=== PATIENT | male | born 1985 | race Caucasian/White ===

== ENCOUNTER 2019-10-02 21:07 | Outpatient (REF) | payer MEDICAID, SELFPAY ==
[2019-10-04 14:28] LABS: Chlamydia Result Negative (Negative); GC Result Negative (Negative)
[2019-10-05 22:00] LABS: Source URINE; T.vaginalis, Misc, RNA Negative (Negative)
== END 2019-10-02 21:27 ==
LOC: LBN 21:07
PROVIDERS: PCP Internal Medicine; Visit Provider Internal Medicine
DX: R30.0 Dysuria (principal); Z11.3 Encounter for screening for infections with a predominantly sexual mode of transmission
CPT/HCPCS: 87491; 87591; 87661

== ENCOUNTER 2021-06-04 20:50 | Outpatient (REF) | payer MEDICAID, SELFPAY ==
[2021-06-04 15:02] LABS: Bilirubin Negative (Negative); Blood Negative (Negative); Clarity Cloudy (Clear); Glucose Negative (Negative); Ketones Negative (Negative); Leukocyte Esterase Negative (Negative); Nitrite Negative (Negative); Urobilinogen 0.2 EU/dL (Up TO 0.2)
[2021-06-04 21:21] LABS: Abs Immature Grans 0.02 10^3/uL (0.0-0.06); Absolute Basophil Count 0.04 10^3/uL (0.0-0.2); Absolute Eosinophil Count 0.11 10^3/uL (0.0-0.7); Absolute Lymphocyte Count 1.96 10^3/uL (1.2-3.4); Absolute Monocyte Count 0.59 10^3/uL (0.1-0.8); Absolute Neutrophil Count 3.72 10^3/uL (1.2-6.7); Basophils % 0.6; Eosinophils % 1.7; HCT 41.9 % (40.0-50.0); HGB 13.9 g/dL (13.5-17.5); Immature Grans % 0.3; Lymphocytes % 30.4; MCH 30.5 pg (27.0-33.0); MCHC 33.2 % (32.0-36.0); MCV 92.1 fL (80-95); MPV 10.7 fL (8.0-11.0); Monocytes % 9.2; Neutrophils % 57.8; Nucleated RBC 0 %; Platelet Count 233 10^3/uL (130-400); RBC 4.55 10^6/uL (4.36-5.78); RDW 12.2 % (11.8-14.1); RDW-SD 41.5 fL; WBC 6.44 10^3/uL (4.4-10.8)
[2021-06-04 21:41] LABS: ALT 18 U/L (16-63); AST 13 U/L (15-37); Albumin 4.3 g/dL (3.4-5.0); Alkaline Phosphatase 115 U/L (46-116); BUN 13 mg/dL (7-18); Bilirubin, Total 0.4 mg/dL (0.2-1.0); Calcium 8.9 mg/dL (8.5-10.1); Chloride 105 mmol/L (98-107); Glucose 93 mg/dL (74-106); Potassium 4.2 mmol/L (3.5-5.1); Sodium 143 mmol/L (136-145); Total Protein 7.4 g/dL (6.4-8.2)
== END 2021-06-04 20:51 | disposition home or self-care (01) ==
LOC: LBN 20:50
PROVIDERS: PCP Nurse Practitioner; Visit Provider Physician Assistant
DX: R10.31 Right lower quadrant pain (principal)
CPT/HCPCS: 80053; 81003; 85025

== ENCOUNTER 2022-11-15 01:57 | Outpatient (CLI) | payer MEDICAID, SELFPAY ==
--- NOTE | 2022-11-15 08:00 | DI.RAD_ITS ---
Exam(s) XR THORACIC SPINE COMPLETE EXAM: XR THORACIC SPINE COMPLETE CLINICAL HISTORY: increasing upper back pain,m54.9. TECHNIQUE: 2D digital imaging was performed. COMPARISON: No exams were available for comparison FINDINGS: Two views: No evidence fracture nor listhesis nor disc space narrowing. No abnormal widening of the paraspinal lines. No thoracic scoliosis. Bone density normal. No osseous lesions IMPRESSION: No significant osseous findings in thoracic spinal column. DATA REPOSITORY: RADIATION DOSE DELIVERED:
--- NOTE | 2022-11-15 08:00 | DI.RAD_ITS ---
Exam(s) XR CERVICAL SPINE COMP 4-5V EXAM: XR CERVICAL SPINE COMP 4-5V CLINICAL HISTORY: Increasing pain. TECHNIQUE: 2D digital imaging was performed. COMPARISON: No exams were available for comparison FINDINGS: Five views: No evidence of fracture or listhesis. No offset spinal laminar line. Moderate disc space narrowing at C6-7 noted. C5-6 exhibits normal height. On the oblique views there are small Luschka joint oste ophytes at C6-7 on right side. No cervical ribs. IMPRESSION: Degenerative disc disease C6-7 as described above. DATA REPOSITORY: RADIATION DOSE DELIVERED:
== END 2022-11-15 02:17 ==
LOC: DI 01:57
PROVIDERS: PCP Nurse Practitioner Family; Visit Provider Nurse Practitioner Family
DX: M54.2 Cervicalgia (principal); M54.6 Pain in thoracic spine; M50.323 Other cervical disc degeneration at C6-C7 level
CPT/HCPCS: 72050; 72072

== ENCOUNTER 2022-11-21 03:19 | Outpatient (CLI) | payer MEDICAID, SELFPAY ==
[2022-11-21 16:45] LABS: ALT 16 U/L (16-63); AST 11 U/L (15-37); Alkaline Phosphatase 109 U/L (46-116); Anion Gap 6.4 mmol/L (3-11); BUN 14 mg/dL (7-18); Bilirubin, Total 0.3 mg/dL (0.2-1.0); CO2 30.6 mmol/L (21.0-32.0); Calcium 9.2 mg/dL (8.5-10.1); Chloride 105 mmol/L (98-107); Cholesterol 163 mg/dL (<200); Glucose 117 mg/dL (74-106); HDL Cholesterol 83 mg/dL (40-60); Potassium 3.5 mmol/L (3.5-5.1); Sodium 142 mmol/L (136-145); TSH (W/Ref FT4) 0.87 uIU/mL (0.36-3.74); Total Protein 7.4 g/dL (6.4-8.2)
[2022-11-21 16:47] LABS: Triglyceride < 25 mg/dL (<150)
[2022-11-21 18:12] LABS: LDL CHOLESTEROL 68 mg/dL (<100)
== END 2022-11-21 03:20 | disposition home or self-care (01) ==
LOC: LBO 03:19
PROVIDERS: PCP Nurse Practitioner Family; Visit Provider Nurse Practitioner Family
DX: Z13.220 Encounter for screening for lipoid disorders (principal); Z13.29 Encounter for screening for other suspected endocrine disorder; Z00.00 Encounter for general adult medical examination without abnormal findings; R79.89 Other specified abnormal findings of blood chemistry
CPT/HCPCS: 36415; 80053; 80061; 83721; 84443

== ENCOUNTER 2025-02-22 15:23 | Emergency (ER) | payer SELFPAY ==
[2025-02-22] VITALS (26 sets, daily range): BP systolic 111–142; BP diastolic 73–84; PULSE 55–79; RESP 12–18; TEMP 36.3; O2SAT 95–100
--- NOTE | 2025-02-22 15:30 | RT.EKG_ITS ---
APPROVED REPORT Exam: Resting ECG Reason for Exam: ?syncope Patient Location: E HR:70 bpm ECG Measurements Heart Rate 70 AXIS AR 130 P 44 QRSd 98 QRS 82 QT 381 T 35 QTc 412 Conclusion Sinus rhythm...normal P axis, V-rate 60- 99
--- NOTE | 2025-02-22 15:30 | DI.CT_ITS ---
Exam(s) CT HEAD WO EXAM: CT HEAD WO CLINICAL HISTORY: fall, headache. TECHNIQUE: Imaging Protocol: Axial computed tomography images with coronal and sagittal reformatted images were created and reviewed COMPARISON: No exams were available for comparison FINDINGS: There are no skull fractures. There is no fluid in the visualized paranasal sinuses. There is no evidence of intracranial hemorrhage, mass effect, or shift of midline structures. There are no extra-axial fluid collections. The ventricles are not enlarged or shifted and there is no blood within the ventricular system nor within the basal cisterns. IMPRESSION: No acute intracranial findings on this noninfused CT scan of the brain. Report called by myself to ER physician 02/22/2025 at 4:12 p.m. RADIATION DOSE DELIVERED: 907.25mGy.cm Total DLP DATA REPOSITORY: All CT scans at this facility are submitted to the National Radiology Data Registry (NRDR) Dose Index Registry (DIR) with the [employer] (A[employer]). RADIATION OPTIMIZATION: All CT scans at this facility use at least one of these dose optimization techniques: automated exposure control; mA and/or kV adjustment per patient size (includes targeted exams where dose is matched to clinical indication); or iterative reconstruction.
--- NOTE | 2025-02-22 15:50 | ED.GENADUL_ITS ---
Discharge Plan Disposition Patient Disposition: Home Condition: Stable Discharge Details Clinical Impression: Fatigue, Altered mental status Primary Care Provider: Rosa Howard ED Provider: Darshan Javier Home Meds and New Rx's Prescriptions: No Action No Known Home Meds Discharge Instructions Additional Instructions: Your blood work and CAT scan did not show any concerning findings at this time. It is unclear if he actually had a seizure. Follow-up with your primary care provider within 1 to 2 weeks especially if your symptoms continue. If you feel significantly more ill or have new symptoms such as high fevers or difficulty breathing return to the emergency department for reevaluation. HPI General Mode of arrival: ambulatory . Date/Time Provider Initiated Documentation: 02/22/25 15:26 . Limitations to Documentation: no limitations . Information obtained by: patient . History of Present Illness 39 year old M presents to the emergency department with the chief complaint of fatigue, headache, ?seizure, described as moderate, Patient started experiencing this day(s) (5) and it has been constant. No relieving factors improve sympto m(s), No exacerbating factors reported . Patient notes no other symptoms.; denies chest pain, fever/chills and shortness of breath. Related Data Home Medications ?Medication ?Instructions ?Recorded ?Confirmed Unknown [No Known Home Meds] 02/22/25 0 02/22/25 Allergies Allergy/AdvReac Type Severity Reaction Status Date / Time No Known Allergies Allergy Verified 02/22/25 15:30 General Stated Complaint: GenMedical CRUZ: 3 Review of Systems All systems reviewed & are unremarkable except as noted in HPI and below Constitutional Constitutional: Denies chills, Reports fatigue, Denies fever(s) and Reports headache(s) Eyes Eyes: Denies loss of vision ENT Ears, Nose, Mouth, and Throat: Reports headache(s) Cardiovascular Cardiovascular: Denies chest pain and Denies dyspnea Respiratory Respiratory: Denies cough and Denies dyspnea Gastrointestinal Gastrointestinal: Denies abdominal pain, Denies nausea and Denies vomiting Neurologic Neurologic: Reports headache(s) and Denies loss of vision Endocrine Endocrine: Reports fatigue Exam Const General: no acute distress Orientation: alert [facility] Head: normal to inspection Ears: external ears normal General nose exam: external nose normal Mouth: moist mucous membranes Eyes General: appearance normal, both eyes and all related structures Neck Neck: normal visual inspection Resp Effort & Inspection: normal respiratory effort and able to speak in complete sentences Cardio Rate: regular rate GI Palpation: soft and nontender Neuro General: patient alert and patient oriented x3 Cranial Nerves: CN's II-XI intact bilaterally Gait: normal gait Extrem General: normal to inspection Psych Mental Status: mental status grossly normal Course Vital Signs Vital signs: Vital Signs Temperature 36.3 C L 02/22/25 15:27 Pulse 68 02/22/25 15:27 Respiratory Rate 12 02/22/25 15:27 Blood Pressure 111/73 02/22/25 15:27 Pulse Oximetry 95 02/22/25 15:27 Temperature 36.3 C L 02/22/25 15:27 Temperature Source Oral 02/22/25 15:27 Pulse 68 02/22/25 15:27 Respiratory Rate 12 02/22/25 15:27 Blood Pressure 111/73 02/22/25 15:27 Blood Pressure Position Sitting 02/22/25 15:27 Pulse Oximetry 95 02/22/25 15:27 Oxygen Delivery Method Room Air 02/22/25 15:27 Oxygen Flow Rate 0 02/22/25 15:27 Medical Decision Making 3-year-old male with a history of mood disorder, anxiety and depression, who comes in with 5 days of intermittent frontal headaches and fatigue after he believes he may have had a seizure. The mother states that she was called to his house by his sons after he was found on the ground and had twitching of his arms and legs. Is unclear why he comes to hospital today. He says since then he has been having headaches and fatigue and difficulties with memory so came in for evaluation. He denies any changes in speech, no changes in vision, no fevers or chills, no chest pain, no abdominal pain. He is moving his lower extremities well. Show nerves II through XII are intact. NIH of 0. No signs of trauma to the head. No midline C-spine tenderness given the question of a seizure I will check a CMP, CBC and also check troponins and EKG head CT for the headache since that started after a potential fall. Labs unremarkable other than mild ptosis 14 but he has no no fevers, no neck stiffness, no cough, no other symptoms to suggest infectious etiology. CT head negative. Given reassuring workup I feel he can follow-up with his PCP if symptoms continue. Unclear if he actually had a seizure. Return precautions given Differential Diagnosis Differential Diagnosis: Electrolyte abnormality, seizure, TBI Lab Data Lab results reviewed: Yes I reviewed the patient's lab results. ECG Data Attestation: I personally reviewed and interpreted this ECG (s) as follows: Prior ECG tracings: not available for review Interpretation: sinus rate of 70 no stemi PFSH All Active Problems (Updated 02/22/25 @ 18:12 by Darshan Javier MD) Altered mental status (Acute) Fatigue (Acute) History of traumatic head injury (Acute) Has never had imaging, 3 pas head injuries, last was 2009. Anxiety and depression (Chronic) Mood disorder (Acute) Testicular pain, unspecified (Acute) status post vasectomy Back pain with radiation (Acute) Upper back, neck, radiates down left arm Family History Mother No problems noted. Father No problems noted. Sister Alcohol abuse Son No problems noted. Son No problems noted. 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
[2025-02-22 16:21] LABS: Abs Immature Grans 0.04 10^3/uL (0.0-0.06); Basophils % 0.8 %; Eosinophils % 1.5 %; HCT 37.4 % (40.0-50.0); HGB 12.6 g/dL (13.5-17.5); Immature Grans % 0.3 %; Lymphocytes % 17.1 %; MCH 32.2 pg (27.0-33.0); MCHC 33.7 % (32.0-36.0); MCV 96 fL (80-95); MPV 9.7 fL (8.0-11.0); Monocytes % 6.5 %; Neutrophils % 73.8 %; Platelet Count 196 10^3/uL (130-400); RBC 3.91 10^6/uL (4.36-5.78); RDW 13.1 % (11.8-14.1); RDW-SD 45.6 fL; WBC 14.41 10^3/uL (4.4-10.8)
[2025-02-22 16:36] LABS: Absolute Basophil Count 0.12 10^3/uL (0.0-0.2); Absolute Eosinophil Count 0.22 10^3/uL (0.0-0.7); Absolute Lymphocyte Count 2.46 10^3/uL (1.2-3.4); Absolute Monocyte Count 0.94 10^3/uL (0.1-0.8); Absolute Neutrophil Count 10.63 10^3/uL (1.2-6.7)
[2025-02-22 16:39] LABS: ALT 16 U/L (16-63); AST 14 U/L (15-37); Albumin 3.7 g/dL (3.4-5.0); Alkaline Phosphatase 122 U/L (46-116); Anion Gap 7.9 mmol/L (3-11); BUN 11 mg/dL (7-18); Bilirubin, Total 0.4 mg/dL (0.2-1.0); CO2 31.1 mmol/L (21.0-32.0); Calcium 8.8 mg/dL (8.5-10.1); Chloride 100 mmol/L (98-107); Estimated GFR 97.58 (mL/min/1.73m2); Glucose 109 mg/dL (74-106); Potassium 3.7 mmol/L (3.5-5.1); Sodium 139 mmol/L (136-145); TSH (W/Ref FT4) 1.09 uIU/mL (0.36-3.74); Total Protein 7.2 g/dL (6.4-8.2); Troponin I 4 ng/L (<or=76)
[2025-02-22 17:23] LABS: Troponin I 4 ng/L (<or=76)
[2025-02-22 17:47] LABS: Bilirubin Negative (Negative); Blood Negative (Negative); Clarity Clear (Clear); Glucose Negative (Negative); Ketones Negative (Negative); Leukocyte Esterase Negative (Negative); Nitrite Negative (Negative); Urobilinogen 0.2 mg/dL (Up to 0.2); pH 7.5 (5-8)
[2025-02-22 17:51] LABS: *AMPHETAMINES SCREEN URINE Negative (Negative); *BARBITURATES SCREEN URINE Negative (Negative); *BENZODIAZEPINES SCREEN URINE Negative (Negative); Cannabinoids THC Positive (Negative); Cocaine Screen,Urine Negative (Negative); METHADONE URINE SCREEN Negative (Negative); OPIATES URINE SCREEN Negative (Negative); Tricyclic Antidepressants Negative (Negative)
== END 2025-02-22 18:17 | disposition home or self-care (01) ==
PROVIDERS: Emergency Provider Emergency Medicine; PCP Nurse Practitioner Family
DX: R53.83 Other fatigue (principal); R41.82 Altered mental status, unspecified; Z87.828 Personal history of other (healed) physical injury and trauma
CPT/HCPCS: 99284 ×2; 80053; 80307; 93005; 70450; 81003; 83735; 84443; 84484; 85025; 93010

== ENCOUNTER 2025-06-19 10:59 | Emergency (ER) | payer MEDICAID, SELFPAY ==
[2025-06-19] VITALS (19 sets, daily range): BP systolic 120–151; BP diastolic 50–89; PULSE 65–83; RESP 12–18; TEMP 36.7; O2SAT 96–99
--- NOTE | 2025-06-19 11:00 | RT.EKG_ITS ---
APPROVED REPORT Exam: Resting ECG Reason for Exam: Chest Pain Patient Location: E HR:72 bpm ECG Measurements Heart Rate 72 AXIS TX 129 P 26 QRSd 86 QRS 73 QT 374 T 54 QTc 408 Conclusion Sinus rhythm, rate 72 No interval abnormalities No STEMI Borderline ST elevation V2, V3, noted on prior. No reciprocal changes
--- NOTE | 2025-06-19 11:30 | DI.RAD_ITS ---
Exam(s) XR CHEST 2V PA LATERAL EXAM: XR CHEST 2V PA LATERAL CLINICAL HISTORY: Chest pain TECHNIQUE: 2D digital imaging was performed of the chest. Two images were obtained. PA and lateral views were obtained. COMPARISON: CR CHEST 2 VIEWS PA,LAT from 11/01/2016 FINDINGS: MEDIASTINUM: Normal. HEART: Normal. PULMONARY VASCULATURE: Normal. LUNGS: Clear. PLEURAL SPACE: No pleural effusion or pneumothorax. BONE:Within normal limits for the patient's age. OTHER FINDINGS:Normal. IMPRESSION: No acute pulmonary findings. DATA REPOSITORY: RADIATION DOSE DELIVERED:
--- NOTE | 2025-06-19 11:33 | W.ED.GENAD ---
Discharge Plan Disposition Patient Disposition: Home Condition: Stable Discharge Details Clinical Impression: Chest pain of unknown etiology, Elevated transaminase level Primary Care Provider: Rosa Howard ED Provider: Ghislaine Kaiser Home Meds and New Rx's Prescriptions: No Action No Known Home Meds Discharge Instructions Instructions: Chest Pain, Adult ED Additional Instructions: You were seen in the emergency department today for evaluation of chest pain for the last several days. In our department you had a full physical examination performed, had an EKG that was reassuring and had a chest x-ray that did not show any abnormalities. You had laboratory studies that did not show any sign of damage to your heart, and otherwise did not show any evidence of infection, electrolyte abnormalities, or damage to your kidneys. You did have some evidence of elevation in your liver enzymes, which may be due to alcohol consumption, but could not occur for a variety of other reasons. I recommend that you reach out to your primary care provider to schedule a follow-up appointment for the next few days, as you will need to have your labs rechecked and discussed the visit that you had today. I recommend that you trial a course of ibuprofen, 600 mg every 6 hours for pain, and use topical lidocaine, either patches or gel, which you can acquire [id number] at the pharmacy. Please follow-up with your primary care provider in the next few days to discuss this visit and any symptoms that change, worsen, or persist. Thank you for allowing us to be part of your care. Stand Alone Forms: Work Release Discharge Data Discharge Date/Time-TO BE ENTERED AT DEPARTURE: 06/19/25 13:28 HPI General Mode of arrival: ambulatory. Date/Time Provider Initiated Documentation: 06/19/25 11:10. Limitations to Documentation: no limitations. Information obtained by: patient and old records reviewed. HPI Narrative: This is a 39-year-old male patient presenting for evaluation of 2 days of chest pain. He reports that he has had this pain and it is constant in the area of his left chest. It does not radiate, he states that it is not worsened by any specific position or deep breath, but occasionally he will get a spontaneous twinge in that area that causes him to feel quite diaphoretic and lightheaded. He has never had symptoms like this before. States that his breathing does feels difficult sometimes, endorses occupational exposures to inhaled irritants. The patient has no personal cardiac history, denies a history of thromboembolic disease, has not had recent fever or chills, cough, or sputum production. Has been eating and drinking typically without nausea or vomiting. Related Data Home Medications ?Medication ?Instructions ?Recorded ?Confirmed Unknown [No Known Home Meds] 03/24/25 06/19/25 Allergies Allergy/AdvReac Type Severity Reaction Status Date / Time lorazepam AdvReac Severe seizure Verified 06/19/25 12:46 General Stated Complaint: Chest Pain CRUZ: 3 Exam Narrative Exam Narrative: Gen: Awake and alert, in no apparent distress HEENT: Non-icteric sclera Neck: Supple Lungs: No apparent respiratory distress, normal respiratory effort. lung sounds clear and equal bilaterally without wheezes, rhonchi, rales CV: Appears well perfused, heart with regular rate and rhythm, no murmurs auscultated. Strong and symmetrical distal pulses. Chest wall without overlying skin changes or tenderness to palpation Abdomen: Non-distended, soft, non-tender MSK: Moves 4 extremities without apparent limitation in ROM Skin: Visualized skin without rashes, cyanosis. Neuro: Normal Gait, no obvious focal deficits or facial asymmetry. Speaks in full, clear sentences. Psych: Appropriate for situation. Course Vital Signs Vital signs: Vital Signs Temperature 36.7 C 06/19/25 11:05 Pulse 68 06/19/25 11:05 Respiratory Rate 16 06/19/25 11:05 Blood Pressure 151/89 H 06/19/25 11:05 Pulse Oximetry 97 06/19/25 11:05 Temperature 36.7 C 06/19/25 11:05 Temperature Source Oral 06/19/25 11:05 Pulse 68 06/19/25 11:05 Respiratory Rate 16 06/19/25 11:05 Blood Pressure 151/89 H 06/19/25 11:05 Blood Pressure Position Sitting 06/19/25 11:05 Pulse Oximetry 97 06/19/25 11:05 Oxygen Delivery Method Room Air 06/19/25 11:05 Oxygen Flow Rate 0 06/19/25 11:05 Medical Decision Making This is a 39-year-old male patient presenting for evaluation of chest pain. My differential includes but is not limited to ACS including STEMI, NSTEMI, unstable angina, certainly considered arrhythmia, pericarditis/myocarditis, aortic pathology. Considered pulmonary abnormalities including pneumonia, bronchitis, pleural effusion, pulmonary edema, reactive airway disease, pneumothorax, pleurisy. The patient is without tachycardia, hypoxia, or a pleuritic component to his pain to significantly increase my concern for pulmonary embolism. He meets PERC criteria for PE rule out at this time without further testing. No GI symptoms or vomiting to suggest Boerhaave's, esophagitis, peptic ulcer disease, pancreatitis. Considered musculoskeletal pathologies including costochondritis, chest wall pain. EKG obtained which shows a normal sinus rhythm without evidence of ischemia, interval abnormality, or ectopy. We will obtain labs to include CBC, CMP, magnesium, troponin, and a chest x-ray. I provided the patient with Tylenol and aspirin for management of symptoms. -I independently interpreted the laboratory studies, which show no significant leukocytosis, anemia, or thrombocytopenia. The chemistry panel is without evidence of electrolyte abnormality, kidney dysfunction, but I do note a transaminitis and elevation in the alkaline phosphatase without associated bilirubin elevation. In the absence of abdominal discomfort, I recommended to the patient that he avoid excessive Tylenol and alcohol, and have his primary care provider reassess his liver enzymes at his follow-up visit in the next few days. Troponin was 4, and given the duration of symptoms of 2 days, I do not see that this patient requires further delta troponin evaluations given his low risk for cardiac ischemia. Chest x-ray reviewed, showing no abnormalities to account for the patient's symptoms. A musculoskeletal or pleurisy etiology could certainly be considered, and I counseled the patient on conservative management with ibuprofen and outpatient PCP follow-up. At this time, the patient has had a full medical evaluation and is safe for discharge to home. They are hemodynamically stable, ambulatory, and tolerating PO. They are understanding of the follow-up plan and return precautions. They left our facility without incident. Ghislaine Kaiser MD [facility] All Active Problems (Updated 06/19/25 @ 15:48 by Ghislaine Kaiser MD) Elevated transaminase level (Acute) Chest pain of unknown etiology (Acute) Post traumatic stress disorder (Acute) History of traumatic head injury (Acute) Has never had imaging, 3 pas head injuries, last was 2009. Anxiety and depression (Chronic) Mood disorder (Acute) Testicular pain, unspecified (Acute) status post vasectomy Back pain with radiation (Acute) Upper back, neck, radiates down left arm Family History Mother No problems noted. Father No problems noted. Sister Alcohol abuse Son No problems noted. Son No problems noted. 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
[2025-06-19] MEDS: Aspirin 81 MG CHEW 324 MG CH (11:52)
[2025-06-19] MEDS: Acetaminophen 500 MG TAB 1000 MG PO (11:53)
[2025-06-19 12:07] LABS: Abs Immature Grans 0.06 10^3/uL (0.0-0.06); HCT 41.3 % (40.0-50.0); HGB 13.5 g/dL (13.5-17.5); Immature Grans % 0.8 %; MCH 31.3 pg (27.0-33.0); MCHC 32.7 % (32.0-36.0); MCV 96 fL (80-95); MPV 8.4 fL (8.0-11.0); Platelet Count 206 10^3/uL (130-400); RBC 4.31 10^6/uL (4.36-5.78); RDW 13.7 % (11.8-14.1); RDW-SD 48.7 fL; WBC 7.91 10^3/uL (4.4-10.8)
[2025-06-19 12:33] LABS: ALT 73 U/L (16-63); AST 53 U/L (15-37); Albumin 3.8 g/dL (3.4-5.0); Alkaline Phosphatase 207 U/L (46-116); Anion Gap 8.0 mmol/L (3-11); BUN 11 mg/dL (7-18); Bilirubin, Total 0.6 mg/dL (0.2-1.0); CO2 31.0 mmol/L (21.0-32.0); Calcium 8.5 mg/dL (8.5-10.1); Chloride 102 mmol/L (98-107); Estimated GFR 114.74 (mL/min/1.73m2); Glucose 92 mg/dL (74-106); Magnesium 2.0 mg/dL (1.8-2.4); Potassium 4.2 mmol/L (3.5-5.1); Sodium 141 mmol/L (136-145); Total Protein 7.8 g/dL (6.4-8.2); Troponin I 4 ng/L (<or=76)
== END 2025-06-19 13:28 | disposition home or self-care (01) ==
PROVIDERS: Emergency Provider Emergency Medicine; PCP Nurse Practitioner Family
DX: R07.9 Chest pain, unspecified (principal); R74.01 Elevation of levels of liver transaminase levels
CPT/HCPCS: 99283; 99284; 36415; 80053; 93005; 71046; 83735; 84484; 85025; 93010